=== PATIENT | male | born 1985 ===

== ENCOUNTER 2019-09-12 14:55 | Emergency (ER) | payer BC, OTHER ==
[2019-09-12 15:43] VITALS: BP 106/71
[2019-09-12 15:57] LABS: Influenza B Molecular POSITIVE (Negative)
--- NOTE | 2019-09-12 15:59 | UC ---
FLU HPI - HPI Summary HPI Summary: 34-year-old male with flulike symptoms over the past 5 days. He did not get a flu shot in the fall, he is a smoker. - History of Current Complaint Chief Complaint: UCGeneralIllness Stated Complaint: COUGH/CHEST CONGESTION Time Seen by Provider: 09/12/19 15:48 Hx Obtained From: Patient Onset/Duration: Gradual Onset Severity Currently: Mild Severity Initially: Mild Pain Intensity: 4 Associated Signs & Symptoms: Positive: Myalgia, Cough, Nasal Congestion - Allergy/Home Medications Allergies/Adverse Reactions: Allergies Allergy/AdvReac Type Severity Reaction Status Date / Time Penicillins Allergy Unknown Unknown Verified 09/12/19 15:41 Reaction Details Home Medications: Home Medications Escitalopram * [Lexapro *] 20 mg PO DAILY 09/12/19 [History Confirmed 09/12/19] busPIRone TAB* [Buspar *] 30 mg PO DAILY 09/12/19 [History Confirmed 09/12/19] lamoTRIgine TAB(*) [LaMICtal TAB(*)] 300 mg PO BEDTIME 09/12/19 [History Confirmed 09/12/19] PMH/Surg Hx/FS Hx/Imm Hx Previously Healthy: Yes - Surgical History Surgical History: Yes Surgery Procedure, Year, and Place: wisdom teeth extraction - Family History Known Family History: Positive: Non-Contributory - Social History Alcohol Use: None Substance Use Type: None Smoking Status (MU): Never Smoked Tobacco Review of Systems All Other Systems Reviewed And Are Negative: Yes Constitutional: Positive: Fever - Patient thinks he may have had a fever but he is not sure. Today he mostly has body aches., Chills ENT: Positive: Nasal Discharge, Sinus Congestion Respiratory: Positive: Cough - Patient states occasionally productive cough of greenish sputum. Musculoskeletal: Positive: Myalgia Is Patient Immunocompromised?: No Physical Exam Triage Information Reviewed: Yes Appearance: Well-Appearing, No Pain Distress, Well-Nourished Vital Signs: Initial Vital Signs Temp 97.3 F 09/12/19 15:38 Pulse 79 09/12/19 15:38 Resp 14 09/12/19 15:38 BP 106/71 09/12/19 15:38 Pulse Ox 98 09/12/19 15:38 Vital Signs Reviewed: Yes Eyes: Positive: Conjunctiva Clear ENT: Positive: Pharynx normal, Nasal drainage - Clear nasal coryza, TMs normal, Uvula midline Neck: Positive: Supple, Nontender, No Lymphadenopathy Respiratory: Positive: Lungs clear, Normal breath sounds, No respiratory distress, No accessory muscle use Cardiovascular: Positive: RRR, No Murmur, Pulses Normal, Brisk Capillary Refill Musculoskeletal Exam: Normal Neurological Exam: Normal Psychological Exam: Normal Skin Exam: Normal Flu Course/Dx - Course Course Of Treatment: Rapid flu test: Positive The patient is comfortable here and does not appear ill. He's basically just to do comfort measures this week and may return to work on Wednesday. - Differential Dx/Diagnosis Provider Diagnosis: Influenza Discharge ED - Sign-Out/Discharge Documenting (check all that apply): Patient Departure All imaging exams completed and their final reports reviewed: No Studies - Discharge Plan Condition: Good Disposition: HOME Patient Education Materials: Influenza (DC) Forms: *Work Release Referrals: Claudette Hendrickson MD [Primary Care Provider] - Additional Instructions: Increase fluids, rest, [id number] cold medicines as directed. Follow up with your primary care provider in 3 or 4 days if no improvement. - Billing Disposition and Condition Condition: GOOD Disposition: Home - Attestation Statements Provider Attestation: This patient was not seen by me. I was available for consult. Chart reviewed. ANNA
== END 2019-09-12 16:24 | disposition home or self-care (01) ==
LOC: UCCORT 14:55
DX: J11.1 Influenza due to unidentified influenza virus with other respiratory manifestations (principal); Z88.0 Allergy status to penicillin
CPT/HCPCS: 99211; G0463